=== PATIENT | female | born 1995 | race Caucasian/White ===

== ENCOUNTER 2018-08-15 18:08 | Emergency (ER) | payer OTHER ==
[2018-08-15] MEDS ORDERED: ACETAMINOPHEN 500 MG TABLET (FP) PO ONE (18:14)
[2018-08-15 18:16] VITALS: BP 127/72; PULSE 85; TEMP 98.5; BMI 26.6
--- NOTE | 2018-08-15 18:16 | PDOC ---
Rapid Medical Evaluation Chief Complaint: Headache Time Seen by Provider: 08/15/18 18:11 Medical Evaluation: 08/15/18 18:14 Pt c/o: occipital throbbing since last night, pt states was sleeping in a chair in fell off hitting the ground, no loc, no viusla changes, no neck pain, c/o of mild dizziness since this am, no meds taken Pt on brief exam: no palpable lump, vss, perrl, eomi Pt ordered for: tylenol pt to proceed to the ED Discharge Disposition - Diagnosis Head ache - Referrals - Patient Instructions - Post Discharge Activity
--- NOTE | 2018-08-15 18:35 | PDOC ---
History of Present Illness - General Chief Complaint: Headache Stated Complaint: HEADACHE Time Seen by Provider: 08/15/18 18:11 - History of Present Illness Initial Comments: 08/15/18 18:34 22-year-old female without comorbidities presents for evaluation of headache dizziness and nausea after hitting her head last night. She states she fell asleep on a chair woke up hit her head on a nightstand. No loss of consciousness Past History - Past Medical History Allergies/Adverse Reactions: Allergies Allergy/AdvReac Type Severity Reaction Status Date / Time No Known Allergies Allergy Verified 08/15/18 18:36 Home Medications: Ambulatory Orders NK [No Known Home Medication] 08/15/18 COPD: No - Suicide/Smoking/Psychosocial Hx Smoking History: Never smoked Have you smoked in the past 12 months: No Information on smoking cessation initiated: No Hx Alcohol Use: No Drug/Substance Use Hx: No Review of Systems - Review of Systems ABD/GI: Yes: Nausea. No: Vomiting Neurological: Yes: Headache, Dizziness *Physical Exam - Vital Signs Last Vital Signs Temp Pulse Resp BP Pulse Ox 98.5 F 85 18 127/72 100 08/15/18 18:11 08/15/18 18:11 08/15/18 18:11 08/15/18 18:11 08/15/18 18:11 - Physical Exam Comments: 08/15/18 18:35 HEAD: NC/AT EYES: Conjuntiva clear Ears: Canals and TM's normal NOSE: No d/c THROAT: Moist mucous membrances, oral pharanx clear, uvula midline NECK: Supple without adenopathy CARDIAC: S1 S2 LUNGS: CTA Full and Equal breath sounds ABDOMEN: Soft NT ND MS: Full ROM in all joints without edema NEUROLOGIC: No gross sensory or motor deficits, NVID SKIN: Normal color and temperature no lesions or rashes Medical Decision Making - Medical Decision Making 08/15/18 21:38 CT negative, Tylenol and Motrin for pain and closed head injury follow-up with neurology no strenuous activity until cleared by neurology. *DC/Admit/Observation/Transfer Diagnosis at time of Disposition: Head ache, Closed head injury - Discharge Dispostion Disposition: HOME Condition at time of disposition: Stable Decision to Admit order: No - Referrals Referrals: Alfonso Simms MD [Primary Care Provider] - Ester Contreras MD [Staff Physician] - - Patient Instructions Printed Discharge Instructions: DI for Closed Head Injury Additional Instructions: Tylenol and Motrin for headache. No strenuous activity until cleared by neurology. Follow-up with neurology in 1-2 days without fail for further evaluation and treatment options. - Post Discharge Activity
[2018-08-15] MEDS ORDERED: ACETAMINOPHEN 325 MG TABLET (FP) ONE (18:40)
== END 2018-08-15 22:02 | disposition home or self-care (01) ==
LOC: JERFT 18:08
DX: S09.90XA Unspecified injury of head, initial encounter (principal); R51 Headache
CPT/HCPCS: 70450-TC; 84703; 99281-25

== ENCOUNTER 2018-10-04 19:58 | Emergency (ER) | payer OTHER ==
[2018-10-04 20:18] VITALS: BP 133/85; PULSE 76; TEMP 97.6; BMI 27.2
[2018-10-04] MEDS ORDERED: KETOROLAC TROMETHAMINE 60 MG/2 ML VIAL IM ONE (20:20)
--- NOTE | 2018-10-04 20:20 | PDOC ---
Rapid Medical Evaluation Chief Complaint: Headache Time Seen by Provider: 10/04/18 20:14 Medical Evaluation: Allergies Allergy/AdvReac Type Severity Reaction Status Date / Time No Known Allergies Allergy Verified 10/04/18 20:18 Vital Signs Temp Pulse Resp BP Pulse Ox 97.6 F 76 16 133/85 100 10/04/18 20:15 10/04/18 20:15 10/04/18 20:15 10/04/18 20:15 10/04/18 20:15 10/04/18 20:18 Pt c/o: headache explained as throbbing to rt side of head radiating to her ear x 3 days . Took advil 1st day w/ goodrelief but returned. No other complaints Pt on brief exam: vss, perrl pt ordered for: toradol im Pt to proceed to the ED Discharge Disposition - Diagnosis Head ache - Referrals - Patient Instructions - Post Discharge Activity
[2018-10-04] MEDS ORDERED: KETOROLAC TROMETHAMINE 60 MG/2 ML VIAL ONE (20:26)
--- NOTE | 2018-10-04 20:41 | PDOC ---
History of Present Illness - General Chief Complaint: Headache Stated Complaint: HEADACHE Time Seen by Provider: 10/04/18 20:14 History Source: Patient Exam Limitations: No Limitations - History of Present Illness Initial Comments: 10/04/18 20:35 22 year old female with no significant medical or surgical history presents with headaches x 3 days. Patient reports no nausea, blurred vision or dizziness. Took advil once with no relief of symptoms. Timing/Duration: reports: other (3 days ) Severity: Yes: mild Associated Symptoms: reports: denies symptoms Past History - Travel Traveled outside of the country in the last 30 days: No Close contact w/someone who was outside of country & ill: No - Past Medical History Allergies/Adverse Reactions: Allergies Allergy/AdvReac Type Severity Reaction Status Date / Time No Known Allergies Allergy Verified 10/04/18 20:18 Home Medications: Ambulatory Orders Acetaminophen 500 mg PO QID #20 tablet 10/04/18 COPD: No - Suicide/Smoking/Psychosocial Hx Smoking History: Never smoked Have you smoked in the past 12 months: No Information on smoking cessation initiated: No Hx Alcohol Use: No Drug/Substance Use Hx: No Neuro Specific PMHX - Complaint Specific PMHX Glaucoma: No Laminectomy: No Migraine: No Multiple Sclerosis: No Neuropathy: No TIA: No Review of Systems - Review of Systems Able to Perform ROS?: Yes Is the patient limited Vietnamese proficient: No Constitutional: No: Chills, Fever, Night Sweats, Weakness HEENTM: No: Nose Congestion, Throat Pain, Mouth Pain, Mouth Swelling Respiratory: No: Shortness of Breath, Wheezing Cardiac (ROS): No: Chest Pain, Lightheadedness, Palpitations Musculoskeletal: No: Back Pain, Gout, Joint Pain, Muscle Pain Neurological: Yes: Headache. No: Numbness, Paresthesia Psychiatric: No: Stressors, Mood Swings *Physical Exam - Vital Signs Last Vital Signs Temp Pulse Resp BP Pulse Ox 97.6 F 76 16 133/85 100 10/04/18 20:15 10/04/18 20:15 10/04/18 20:15 10/04/18 20:15 10/04/18 20:15 - Physical Exam General Appearance: Yes: Nourished, Appropriately Dressed HEENT: positive: TMs Normal, Pharynx Normal Neck: positive: Supple. negative: Lymphadenopathy (R), Lymphadenopathy (L) Respiratory/Chest: positive: Lungs Clear, Normal Breath Sounds Cardiovascular: positive: Regular Rhythm, Regular Rate Musculoskeletal: positive: Normal Inspection Neurologic: positive: assembler II-XII NML intact, Fully Oriented, Normal Response ED Treatment Course - Medications Given in the ED: ED Medications Discontinued Medications Generic Name Dose Route Start Last Admin Trade Name Wanda PRN Reason Stop Dose Admin Ketorolac Tromethamine 60 mg 10/04/18 20:20 10/04/18 20:30 Toradol Injection - IM 10/04/18 20:21 60 mg ONCE ONE Administration Medical Decision Making - Medical Decision Making 10/04/18 20:43 22 year old female with no significant medical or surgical history presents with headaches x 3 days headache plan: analgesia given in fast track area 10/04/18 21:31 states feeling better with no more pain d/c rx: acetaminophen *DC/Admit/Observation/Transfer Diagnosis at time of Disposition: Head ache Qualifiers: Headache type: unspecified Headache chronicity pattern: acute headache Intractability: not intractable Qualified Code(s): R51 - Headache - Discharge Dispostion Disposition: HOME Condition at time of disposition: Good Decision to Admit order: No - Prescriptions Prescriptions: Acetaminophen 500 mg PO QID #20 tablet - Referrals Referrals: Alfonso Simms MD [Primary Care Provider] - Call tomorrow (call for follow up appointment ) - Patient Instructions Printed Discharge Instructions: DI for Headache Additional Instructions: Drink plenty fluids May take acetaminophen or ibuprofen for headache Return for blurred or loss of vision - Post Discharge Activity Forms/Work/School Notes: Back to Work
== END 2018-10-04 21:40 | disposition home or self-care (01) ==
LOC: JERFT 19:58
PROC: 3E0233Z Introduction of Anti-inflammatory into Muscle, Percutaneous Approach (ICD-10-PCS; principal; 2018-10-04)
DX: R51 Headache (principal)
CPT/HCPCS: 99281-25

== ENCOUNTER 2019-04-26 19:05 | Emergency (ER) | payer OTHER ==
[2019-04-26 19:31] VITALS: BP 123/76; PULSE 101; TEMP 98.5; BMI 27.4
[2019-04-26] MEDS ORDERED: ACETAMINOPHEN 1000 MG/100 ML VIAL (NON FORMULARY) IVPB ONE (20:10)
[2019-04-26] MEDS ORDERED: SODIUM CHLORIDE 1,000 ML IV STA (20:10)
[2019-04-26] MEDS ORDERED: FAMOTIDINE 20 MG TABLET PO ONE (20:11)
[2019-04-26] MEDS ORDERED: MAG HYDROX/AL HYDROX/SIMETH 30 ML UNIT-DOSE CUP PO ONE (20:11)
--- NOTE | 2019-04-26 20:15 | PDOC ---
History of Present Illness - General Chief Complaint: Pain Stated Complaint: ABDOMINAL PAIN Time Seen by Provider: 04/26/19 19:47 History Source: Patient Exam Limitations: No Limitations - History of Present Illness Travel History: No Initial Comments: 04/26/19 20:12 HISTORY OF PRESENT ILLNESS: 23-year-old woman denies medical history presents emergency department for evaluation of left upper abdominal pain over the past 2 to 3 days. Patient reports pain 6/10 and describes as a gassy pain. She denies any nausea or vomiting but reports the pain worsens when she eats spicy foods. Patient endorses having one yellow loose bowel movement approximately 1 hour prior to arrival. She denies fevers, chills, chest pain, shortness of breath, dysuria, hematuria, vaginal bleeding. No recent travel or sick contacts. PAST MEDICAL HISTORY: Denies past medical history SURGICAL HISTORY: Denies ALLERGIES: No known drug allergies REVIEW OF SYSTEMS General/Constitutional: Denies fever or chills. Denies weakness, weight change. HEENT: Denies change in vision. Denies ear pain or discharge. Denies sore throat. Cardiovascular: Denies chest pain or shortness of breath. Respiratory: Denies cough, wheezing, or hemoptysis. Gastrointestinal: See HPI Genitourinary: Denies dysuria, frequency, or change in urination. Musculoskeletal: Denies joint or muscle swelling or pain. Denies neck or back pain. Skin and breasts: Denies rash or easy bruising. Neurologic: Denies headache, vertigo, loss of consciousness, or loss of sensation. Psychiatric: Denies depression or anxiety. Endocrine: Denies increased thirst. Denies abnormal weight change. Hematologic/Lymphatic: Denies anemia, easy bleeding, or history of blood clots. Allergic/Immunologic: Denies hives or skin allergy. Denies latex allergy. PHYSICAL EXAM General Appearance: Well-appearing, appropriately dressed. No apparent distress, no intoxication. Respiratory/Chest: Lungs CTAB. No shortness of breath, chest tenderness, respiratory distress, accessory muscle use. No crackles, rales, rhonchi, stridor, wheezing, dullness Cardiovascular: RRR. S1, S2. No JVD, murmur, bradycardia, tachycardia. Gastrointestinal/Abdominal: Normal bowel sounds. Abdomen soft, non-distended. No tenderness or rebound tenderness. No organomegaly, pulsatile mass, guarding, hernia, hepatomegaly, splenomegaly. Past History - Past Medical History Allergies/Adverse Reactions: Allergies Allergy/AdvReac Type Severity Reaction Status Date / Time No Known Allergies Allergy Verified 04/26/19 19:31 Home Medications: Ambulatory Orders Acetaminophen 500 mg PO QID #20 tablet 10/04/18 Cephalexin Monohydrate [Keflex -] 500 mg PO Q8H #30 capsule 04/27/19 COPD: No - Psycho Social/Smoking Cessation Hx Smoking History: Never smoked Have you smoked in the past 12 months: No Hx Alcohol Use: No Drug/Substance Use Hx: No *Physical Exam - Vital Signs Last Vital Signs Temp Pulse Resp BP Pulse Ox 98.5 F 101 H 18 123/76 99 04/26/19 19:28 04/26/19 19:28 04/26/19 19:28 04/26/19 19:28 04/26/19 19:28 ED Treatment Course - LABORATORY CBC & Chemistry Diagram: 04/26/19 21:42 04/26/19 21:40 Medical Decision Making - Medical Decision Making 04/26/19 20:13 A/P: 23-year-old woman with left upper quadrant pain for 2 to 3 days with loose yellow stools today Abdominal exam is unremarkable Differential diagnosis includes but is not limited to-gastroenteritis, dyspepsia , pancreatitis, cholecystitis, obstruction, perforation Less likely obstruction or perforation given benign abdominal exam Labs including lipase Normal saline 1 L IV bolus Tylenol 1 g IV Pepcid 20 mg orally Maalox 30 cc orally once Reassess-low threshold to image pending laboratory testing 04/27/19 01:41 Laboratory Tests 04/26/19 04/26/19 04/27/19 21:40 21:42 00:20 WBC 7.4 RBC 5.07 Hgb 14.1 Hct 41.0 MCV 80.9 MCH 27.8 MCHC 34.3 RDW 13.4 Plt Count 454 H MPV 7.3 L Absolute Neuts (auto) 4.0 Neutrophils % 54.2 Lymphocytes % 29.2 Monocytes % 14.9 H Eosinophils % 0.9 Basophils % 0.8 Nucleated RBC % 0 Sodium 137 Potassium 3.7 Chloride 101 Carbon Dioxide 27 Anion Gap 8 BUN 6.6 L Creatinine 0.7 Est GFR (CKD-EPI)AfAm 140.55 Est GFR (CKD-EPI)NonAf 121.27 Random Glucose 101 Calcium 9.3 Total Bilirubin 0.3 AST 13 L ALT 17 Alkaline Phosphatase 62 Total Protein 7.5 Albumin 3.8 Lipase 138 Urine Color Yellow Urine Appearance Cloudy Urine pH 5.5 Ur Specific [place] 1.010 Urine Protein Negative Urine Glucose (UA) Negative Urine Ketones Trace H Urine Blood Negative Urine Nitrite Negative Urine Bilirubin Negative Urine Urobilinogen 0.2 Ur Leukocyte Esterase Trace Urine WBC (Auto) 45 Urine RBC (Auto) 6 Urine Casts (Auto) 0 U Epithel Cells (Auto) >36 Urine Bacteria (Auto) 1201 Urine HCG, Qual 04/27/19 00:20 WBC RBC Hgb Hct MCV MCH MCHC RDW Plt Count MPV Absolute Neuts (auto) Neutrophils % Lymphocytes % Monocytes % Eosinophils % Basophils % Nucleated RBC % Sodium Potassium Chloride Carbon Dioxide Anion Gap BUN Creatinine Est GFR (CKD-EPI)AfAm Est GFR (CKD-EPI)NonAf Random Glucose Calcium Total Bilirubin AST ALT Alkaline Phosphatase Total Protein Albumin Lipase Urine Color Urine Appearance Urine pH Ur Specific [place] Urine Protein Urine Glucose (UA) Urine Ketones Urine Blood Urine Nitrite Urine Bilirubin Urine Urobilinogen Ur Leukocyte Esterase Urine WBC (Auto) Urine RBC (Auto) Urine Casts (Auto) U Epithel Cells (Auto) Urine Bacteria (Auto) Urine HCG, Qual Negative Patient currently feels better. Discharge home with prescription for Keflex to treat pyelonephritis. I discussed the physical exam findings, ancillary test results and final diagnoses with the patient. I answered all of the patient's questions. The arianne ent was satisfied with the care received and felt comfortable with the discharge plan and treatment plan. The patient will call their primary care physician within 24 hours to arrange follow-up and will return to the Emergency Department with any new, persistent or worsening symptoms. Portions of this note have been documented using voice recognition software. As a result, errors may occur in the word processor process. Effort has been made to correct all grammatical and word processor error, but some may have been missed which may produce sporadic inaccurate word processor or nonsensical phrases. 04/27/19 01:46 Discharge - Discharge Information Problems reviewed: Yes Clinical Impression/Diagnosis: UTI (urinary tract infection) Qualifiers: Urinary tract infection type: acute pyelonephritis Qualified Code(s): N10 - Acute pyelonephritis Condition: Stable Disposition: HOME - Admission No - Additional Discharge Information Prescriptions: Cephalexin Monohydrate [Keflex -] 500 mg PO Q8H #30 capsule - Follow up/Referral Referrals: Laurie Mccain MD [Primary Care Provider] - - Patient Discharge Instructions Additional Instructions: Rest, drink lots of fluids: Teas, water, soups Avoid contact with others until fevers and symptoms resolved Lots of handwashing and good hygiene Continue [id number] medications for symptomatic relief Tylenol or Motrin for fever and pain Continue all of antibiotics until completed Followup with private physician in one week for repeat urinalysis/reevaluation Return to emergency department for worsened symptoms, fevers, dehydration jean pierre [place]: Ts, agua, sopas Evite el contacto con otros hasta que las fiebres y los sntomas se resuelvan Un montn de lavado de alycia y buena higiene Contine los medicamentos sin receta para el alivio sintomtico Tylenol o Motrin para la fiebre y el dolor Continuar todos los antibiticos hasta completarse Seguimiento con mdico privado en [place] semana para repetir anlisis de orina / reevaluacin Volver al servicio de urgencias por sntomas empeorados, fiebres, deshidratacin - Post Discharge Activity
[2019-04-26] MEDS ORDERED: FAMOTIDINE 20 MG TABLET ONE (20:41)
[2019-04-26] MEDS ORDERED: ACETAMINOPHEN INJECTION 100 ML IVPB ONE (20:42)
[2019-04-26] MEDS ORDERED: MAG HYDROX/AL HYDROX/SIMETH 30 ML UNIT-DOSE CUP ONE (20:42)
[2019-04-26 22:12] LABS: BASO % 0.8 % (0-2.0); EOS % 0.9 % (0-4.5); HEMOGLOBIN 14.1 GM/dL (10.7-15.3); LYMPH % 29.2 % (8-40); MCH 27.8 pg (25.7-33.7); MCHC 34.3 g/dl (32.0-36.0); MEAN CELL VOLUME 80.9 fl (80-96); MEAN PLT VOLUME 7.3 fl (7.5-11.1); MONO % 14.9 % (3.8-10.2); NEUT % 54.2 % (42.8-82.8); PLATELET COUNT 454 K/MM3 (134-434); RBC 5.07 M/mm3 (3.60-5.2); RDW 13.4 % (11.6-15.6); WHITE BLOOD COUNT 7.4 K/mm3 (4.0-10.0)
[2019-04-26 22:44] LABS: ALBUMIN 3.8 g/dl (3.4-5.0); BILIRUBIN,TOTAL 0.3 mg/dL (0.2-1); BLOOD UREA NITROGEN 6.6 mg/dL (7-18); CALCIUM 9.3 mg/dL (8.5-10.1); CREATININE 0.7 mg/dL (0.55-1.3); POTASSIUM 3.7 mmol/L (3.5-5.1); TOT PROT 7.5 g/dl (6.4-8.2)
[2019-04-27 01:37] LABS: EPI CELLS >36 /HPF (0-5/HPF); HYALINE CASTS 0 /lpf (0-8); PH,URINE 5.5 (5.0-8.0); URINE APPEARANCE CLOUDY; URINE BACTERIA 1201 /hpf (NEGATIVE); URINE BILIRUBIN NEGATIVE (NEGATIVE); URINE COLOR YELLOW; URINE GLUCOSE (UA) NEGATIVE (NEGATIVE); URINE KETONE TRACE (NEGATIVE); URINE LEUK ESTERASE TRACE (NEGATIVE); URINE NITRITE NEGATIVE (NEGATIVE); URINE PROTEIN NEGATIVE (NEGATIVE); URINE RBC 6 /hpf (0-4); URINE UROBILINOGEN 0.2 mg/dL (0.2-1.0); URINE WBC 45 /hpf (0-5)
== END 2019-04-27 01:50 | disposition home or self-care (01) ==
LOC: JER 19:05
PROC: 3E033NZ Introduction of Analgesics, Hypnotics, Sedatives into Peripheral Vein, Percutaneous Approach (ICD-10-PCS; principal; 2019-04-26)
DX: N39.0 Urinary tract infection, site not specified (principal)
CPT/HCPCS: 36415; 80053; 81003; 83690; 84703; 85025; 96374; 99284-25; J0131; J7030

== ENCOUNTER 2022-03-10 14:55 | Emergency (ER) | payer OTHER ==
[2022-03-10 15:02] VITALS: BP 123/73; PULSE 98; RESP 18; TEMP 98.4; BMI 28.3
[2022-03-10] MEDS ORDERED: ACETAMINOPHEN 325 MG TABLET (FP) PO ONE (16:34)
[2022-03-10] MEDS ORDERED: ACETAMINOPHEN 325 MG TABLET (FP) ONE (16:47)
[2022-03-10 17:04] LABS: BASO % 0.7 % (0-2.0); EOS % 0.7 % (0-4.5); HEMOGLOBIN 13.6 GM/dL (10.7-15.3); LYMPH % 24.4 % (8-40); MCH 27.7 pg (25.7-33.7); MCHC 34.1 g/dl (32.0-36.0); MEAN CELL VOLUME 81.2 fl (80-96); MEAN PLT VOLUME 7.4 fl (7.5-11.1); NEUT % 66.2 % (42.8-82.8); PLATELET COUNT 403 10^3/uL (134-434); RBC 4.92 M/mm3 (3.60-5.2)
[2022-03-10 17:05] LABS: EPI CELLS >36 /uL (0-25.1); HYALINE CASTS 1 /uL (0-3.1); URINE APPEARANCE CLOUDY; URINE BACTERIA 561 /uL (0-1359); URINE BILIRUBIN NEGATIVE (NEGATIVE); URINE COLOR YELLOW; URINE GLUCOSE (UA) NEGATIVE (NEGATIVE); URINE KETONE NEGATIVE (NEGATIVE); URINE LEUK ESTERASE 1+ (NEGATIVE); URINE NITRITE NEGATIVE (NEGATIVE); URINE PROTEIN NEGATIVE (NEGATIVE); URINE RBC 17 /uL (0-23.9); URINE WBC 29 /uL (0-25.8)
[2022-03-10 17:12] LABS: INR 0.99 (0.83-1.09); PROTHROMBIN TIME (PATIENT) 11.4 SEC (9.7-13.0)
[2022-03-10 17:33] LABS: CALCIUM 8.8 mg/dL (8.5-10.1)
[2022-03-10 17:34] LABS: ALBUMIN 3.8 g/dl (3.4-5.0); BLOOD UREA NITROGEN 10.2 mg/dL (7-18)
[2022-03-10 17:37] LABS: CREATININE 0.6 mg/dL (0.55-1.3)
[2022-03-10 17:38] LABS: TOT PROT 7.4 g/dl (6.4-8.2)
[2022-03-10 17:39] LABS: BILIRUBIN,TOTAL 0.2 mg/dL (0.2-1)
[2022-03-10] MEDS ORDERED: CEPHALEXIN MONOHYDRATE 500 MG CAPSULE (UD) PO ONE (19:14)
[2022-03-10] MEDS ORDERED: CEPHALEXIN MONOHYDRATE 500 MG CAPSULE (UD) ONE (21:48)
== END 2022-03-10 22:04 | disposition home or self-care (01) ==
LOC: JER 14:55
DX: O20.9 Hemorrhage in early pregnancy, unspecified (principal); Z3A.08 8 weeks gestation of pregnancy
CPT/HCPCS: 36415; 76817-TC; 80053; 81003; 84702; 85025; 85610; 85730; 86850; 86900; 86901; 87086; 99284-25

== ENCOUNTER 2022-10-20 10:35 | Inpatient (IN) | payer OTHER ==
[2022-10-20] MEDS: ELECTROLYTE-148 SOLN 1,000 ML IV SCH ×2 (12:05→14:39)
[2022-10-20 12:41] VITALS: BMI 30.2
[2022-10-20 12:55] LABS: BASO % 0.4 % (0-2.0); HEMATOCRIT 40.5 % (32.4-45.2); HEMOGLOBIN 13.5 GM/dL (10.7-15.3); LYMPH % 12.1 % (8-40); MCH 27.8 pg (25.7-33.7); MCHC 33.4 g/dl (32.0-36.0); MEAN CELL VOLUME 83.4 fl (80-96); MEAN PLT VOLUME 8.2 fl (7.5-11.1); NEUT % 82.5 % (42.8-82.8); PLATELET COUNT 286 10^3/uL (134-434); RBC 4.86 M/mm3 (3.60-5.2); RDW 13.7 % (11.6-15.6)
[2022-10-20 13:02] LABS: INR 0.9 (0.83-1.09); PROTHROMBIN TIME (PATIENT) 10.5 SEC (9.7-13.0)
[2022-10-20 13:26] LABS: POTASSIUM 4.1 mmol/L (3.5-5.1)
[2022-10-20] MEDS ORDERED: FENTANYL/BUPIVACAINE/NS/PF - PCEA - 50 ML DISP.SYRIN EP ONE ×3 (13:27→22:23)
[2022-10-20 13:28] LABS: BLOOD UREA NITROGEN 7.2 mg/dL (7-18)
[2022-10-20 13:31] LABS: CREATININE 0.6 mg/dL (0.55-1.3)
[2022-10-20] MEDS ORDERED: FENTANYL CITRATE/PF 50 MCG/ML VIAL ONE ×2 (13:47→14:07)
[2022-10-20] MEDS ORDERED: LIDO 2%/EPI 1:200000 PRESRVFRE (20 ML SDVIAL) ONE (13:48)
[2022-10-20] MEDS ORDERED: BUPIVACAINE HCL/PF 0.25% (2.5MG/ML) 10 ML VIAL ONE ×2 (13:48→14:07)
[2022-10-20] MEDS: FENTANYL/BUPIVACAINE/NS/PF - PCEA - 50 ML DISP.SYRIN EP SCH ×2 (14:05→18:51)
[2022-10-20] MEDS ORDERED: NALOXONE HCL 0.4 MG/ML VIAL IVPUSH PRN (14:13)
[2022-10-20] MEDS ORDERED: OXYTOCIN 30 UNITS in 0.9% NS 30 UNIT/500 ML INFUS.BAG IVPB ONE (20:18)
[2022-10-20] MEDS ORDERED: OXYTOCIN 20 UNITS in 0.9% NS 20 UNIT/1,000 ML INFUS.BAG IV ONE (20:18)
[2022-10-20] MEDS ORDERED: ELECTROLYTE-148 SOLN 1,000 ML IV SCH (20:45)
[2022-10-20] MEDS ORDERED: OXYTOCIN 30 UNITS in 0.9% NS 30 UNIT/500 ML INFUS.BAG IVPB SCH (20:45)
[2022-10-20] MEDS ORDERED: OXYTOCIN 20 UNITS in 0.9% NS 20 UNIT/1,000 ML INFUS.BAG IV SCH (23:45)
[2022-10-20] MEDS ORDERED: BENZOCAINE 20% 57 GM BOTTLE TP PRN (23:52)
[2022-10-20] MEDS ORDERED: ACETAMINOPHEN 325 MG TABLET (FP) PO PRN (23:52)
[2022-10-20] MEDS ORDERED: BENZOCAINE 28 GM HEMORRHOIDAL OINTMENT TP PRN (23:52)
[2022-10-20] MEDS ORDERED: METHYLERGONOVINE MALEATE 0.2 MG/1 ML AMP IM ONE (23:52)
[2022-10-20] MEDS ORDERED: WITCH HAZEL 50% (TUCKS) 40 PAD/JAR PAD TP PRN (23:52)
[2022-10-20] MEDS ORDERED: oxyCODONE HCL 5 MG TABLET PO PRN (23:52)
[2022-10-20] MEDS ORDERED: METHYLERGONOVINE MALEATE 0.2 MG/1 ML AMP IM PRN (23:52)
[2022-10-20] MEDS ORDERED: BISACODYL 10 MG SUPP.RECT RC PRN (23:52)
[2022-10-20 23:53] LABS: CORD HCO3 25.3 mmHg (20-29); CORD PCO2 58.4 mmHg (30-78); CORD pH 7.255 (7.14-7.44)
[2022-10-20 23:55] LABS: CORD HCO3 27.5 mmHg (20-29); CORD PCO2 63.9 mmHg (30-78); CORD pH 7.252 (7.14-7.44)
[2022-10-21] MEDS: IBUPROFEN 600 MG TABLET (FP) PO PRN (01:46)
[2022-10-21 08:54] LABS: BASO % 0.5 % (0-2.0); EOS % 0.1 % (0-4.5); HEMOGLOBIN 11.8 GM/dL (10.7-15.3); LYMPH % 12.4 % (8-40); MCH 28.6 pg (25.7-33.7); MCHC 34.7 g/dl (32.0-36.0); MEAN CELL VOLUME 82.2 fl (80-96); MEAN PLT VOLUME 7.7 fl (7.5-11.1); PLATELET COUNT 233 10^3/uL (134-434); RBC 4.13 M/mm3 (3.60-5.2); RDW 13.6 % (11.6-15.6)
[2022-10-21 21:17] VITALS: PULSE 80; RESP 18
[2022-10-21] MEDS ORDERED: SENNOSIDES/DOCUSATE COMBO (SENNA PLUS) TABLET (UD) PO PRN (22:00)
[2022-10-22] MEDS: IBUPROFEN 600 MG TABLET (FP) PO PRN (08:52)
[2022-10-22 11:09] VITALS: BP 105/69; TEMP 98.5
[2022-10-24 14:00] LABS: POC NITRAZINE POS
== END 2022-10-22 12:20 | disposition home or self-care (01) | DRG 560 ==
LOC: JDEL 10:35 → JLDR 11:55 → J3W 10-21 01:20
PROVIDERS: ADMIT Obstetrics & Gynecology; ATTEND Obstetrics & Gynecology
PROC: 10E0XZZ Delivery of Products of Conception, External Approach (ICD-10-PCS; principal; 2022-10-20)
PROC: 0W8NXZZ Division of Female Perineum, External Approach (ICD-10-PCS; 2022-10-20)
DX: O48.0 Post-term pregnancy (principal); Z3A.40 40 weeks gestation of pregnancy; Z37.0 Single live birth
CPT/HCPCS: 36415; 36600; 59025; 80048; 82803; 83986-QW; 85025; 85610; 85730; 86780; 86850; 86900; 86901; G0463-25